=== PATIENT | male | born 1980 | race Two or more races ===

== ENCOUNTER 2016-11-23 10:20 | Emergency (ER) | payer OTHER ==
[~2016-11-23] VITALS: Ht 177.8 cm; Wt 123.5 kg
[2016-11-23 10:22] VITALS: BP 128/73
== END 2016-11-23 11:26 | disposition home or self-care (01) ==
LOC: ED 11:20
DX: L03.115 Cellulitis of right lower limb (principal); L03.116 Cellulitis of left lower limb; Z86.14 Personal history of Methicillin resistant Staphylococcus aureus infection
CPT/HCPCS: 99281